=== PATIENT | male | born 1975 | race Caucasian/White ===

== ENCOUNTER 2021-03-21 21:36 | Emergency (ER) | payer OTHER ==
[~2021-03-21] VITALS: Ht 175.3 cm; Wt 86.2 kg
[2021-03-21] MEDS ORDERED: ASA81BEC PO (21:47)
[2021-03-21] MEDS ORDERED: CLARITIN10 M3 PO (21:47)
[2021-03-21 22:37] LABS: URINE BILIRUBIN NEGATIVE (Negative); URINE BLOOD TRACE (Negative); URINE CLARITY CLEAR; URINE COLOR YELLOW; URINE GLUCOSE-RANDOM NEGATIVE (Negative); URINE KETONES NEGATIVE (Negative); URINE LEUKOCYTES-REFLEX NEGATIVE (Negative); URINE NITRITE-REFLEX NEGATIVE (Negative); URINE PROTEIN NEGATIVE (Negative); URINE SPECIFIC GRAVITY 1.015 (1.005-1.030); URINE UROBILINOGEN 0.2 E.U./dl (0.2-1.0)
[2021-03-21 22:45] LABS: AMP/METHAMP Negative (Negative); BARBITURATES Negative (Negative); BENZODIAZEPINES Negative (Negative); COCAINE Negative (Negative); METHADONE Negative (Negative); OPIATES Negative (Negative); PCP Negative (Negative); THC Negative (Negative)
[2021-03-21 22:52] LABS: ABSOLUTE EOSINOPHILS 0.2 thou/uL (0.0-0.7); ABSOLUTE LYMPHOCYTES 1.5 thou/uL (0.8-5.3); ABSOLUTE MONOCYTES 0.8 thou/uL (0.0-1.2); BASOPHILS 0.4 %; EOSINOPHILS 2.4 %; HEMATOCRIT 41.6 % (42.0-52.0); HEMOGLOBIN 13.9 gm/dL (14.0-18.0); LYMPHOCYTES 20.5 %; MCHC 33.5 g/dL (28.0-37.0); MCV 86.5 fL (80.0-100.0); MONOCYTES 10.2 %; MPV 7.2 fl. (7.2-11.1); NUCLEATED RBCS 0 /100WBC; PLATELET COUNT* 277 thou/uL (150-400); POLYS 66.5 %; WBC 7.5 thou/uL (4.0-11.0)
[2021-03-21 23:07] LABS: CALCIUM 9.7 mg/dL (8.5-10.1); CREATININE 1.1 mg/dL (0.6-1.3); POTASSIUM 3.8 mmol/L (3.5-5.1)
[2021-03-22] MEDS ORDERED: FLEXERIL PO (00:36)
[2021-03-22] MEDS ORDERED: HYDROCODON-ACE1 EAC8 PO (00:36)
[2021-03-22 00:49] VITALS: BP 163/108
--- NOTE | 2021-03-23 12:06 | EKG ---
[place] [address] ELECTROCARDIOGRAM REPORT Name: DEXTERJOAQUIM Graham II Room: [facility]#: [id number] Admission: 03/21/21 Attend Phys: Discharge: 03/22/21 Date of : 79 Date of Service: 03/21/21 2304 Report #: [id number] THIS REPORT FOR: //name// [facility] ED Test Date: 2021-03-21 Test Time: 23:04:20 Pat Name: JOAQUIM RENTERIA Department: Room: Gender: [employer]over: [place] : 1975 Requested By: Johanny Toure Order Number: [id number] Janice MD: Mo Marin Measurements Intervals [place] Rate: 71 P: 23 RI: 135 QRS: -10 QRSD: 99 T: 22 QT: 385 QTc: 419 Interpretive Statements Sinus rhythm ST elev, probable normal early repol pattern No previous ECG available for comparison Electronically Signed On 03-23-2021 12:05:59 CDT by Mo Marin [email or web address] <ELECTRONICALLY SIGNED> By: Mo Marin MD, [facility] 03/23/21 1205 2304 03 Mo Marin MD, FACC /EPI
== END 2021-03-22 00:49 | disposition home or self-care (01) ==
LOC: M.ERS 21:36
PROVIDERS: Emergency Medicine
DX: M62.830 Muscle spasm of back (principal); M25.562 Pain in left knee; R10.13 Epigastric pain; M54.5 Low back pain; M25.512 Pain in left shoulder; M25.552 Pain in left hip; M54.2 Cervicalgia; V89.2XXA Person injured in unspecified motor-vehicle accident, traffic, initial encounter; Y93.89 Activity, other specified; Y92.89 Other specified places as the place of occurrence of the external cause; Y99.8 Other external cause status

== ENCOUNTER 2022-01-17 17:24 | Emergency (ER) | payer OTHER ==
[~2022-01-17] VITALS: Ht 175.3 cm; Wt 86.2 kg
[~2022-01-17 17:24] MED LIST: ASA81BEC PO; CLARITIN10 M3 PO; FLEXERIL PO; HYDROCODON-ACE1 EAC8 PO
[2022-01-17 17:53] LABS: URINE BILIRUBIN NEGATIVE (Negative); URINE BLOOD NEGATIVE (Negative); URINE CLARITY CLEAR; URINE COLOR YELLOW; URINE GLUCOSE-RANDOM NEGATIVE (Negative); URINE KETONES 1+ (Negative); URINE LEUKOCYTES-REFLEX NEGATIVE (Negative); URINE NITRITE-REFLEX NEGATIVE (Negative); URINE PROTEIN NEGATIVE (Negative); URINE SPECIFIC GRAVITY 1.015 (1.005-1.030); URINE UROBILINOGEN 0.2 E.U./dl (0.2-1.0)
[2022-01-17 18:24] LABS: ABSOLUTE EOSINOPHILS 0.1 thou/uL (0.0-0.7); ABSOLUTE LYMPHOCYTES 1.6 thou/uL (0.8-5.3); ABSOLUTE MONOCYTES 0.6 thou/uL (0.0-1.2); ABSOLUTE NEUTROPHILS 3.9 thou/uL (1.6-8.1); BASOPHILS 0.5 %; HEMATOCRIT 40.3 % (42.0-52.0); HEMOGLOBIN 13.6 gm/dL (14.0-18.0); LYMPHOCYTES 25.7 %; MCH 28.7 pg (26.0-34.0); MCHC 33.7 g/dL (28.0-37.0); MCV 85.1 fL (80.0-100.0); MONOCYTES 9.6 %; MPV 7.1 fl. (7.2-11.1); NUCLEATED RBCS 0 /100WBC; PLATELET COUNT* 286 thou/uL (150-400); POLYS 62.2 %; RBC 4.73 mil/uL (4.50-6.00); RDW-CV 13.6 % (10.5-14.5); WBC 6.3 thou/uL (4.0-11.0)
[2022-01-17 18:37] LABS: CALCIUM 8.4 mg/dL (8.5-10.1); CREATININE 0.9 mg/dL (0.6-1.3); POTASSIUM 3.8 mmol/L (3.5-5.1)
[2022-01-17 18:41] LABS: ALBUMIN 3.7 g/dL (3.4-5.0); TOTAL BILIRUBIN 0.3 mg/dL (<0.1-1.0); TOTAL PROTEIN 7.2 g/dL (6.4-8.2)
[2022-01-17] MEDS ORDERED: MECLIZINE HCL25 M1 PO (19:18)
[2022-01-17 19:53] VITALS: BP 140/99
--- NOTE | 2022-01-18 12:54 | EKG ---
[place] [address] ELECTROCARDIOGRAM REPORT Name: JOAQUIM RENTERIA II Room: [facility]#: [id number] Admission: 01/17/22 Attend Phys: Discharge: 01/17/22 Date of : 79 Date of Service: 01/17/22 1739 Report #: [id number] THIS REPORT FOR: //name// [facility] ED Test Date: 2022-01-17 Test Time: 17:39:21 Pat Name: JOAQUIM RENTERIA Department: Room: Gender: Farm Crew Member: CALI : 1975 Requested By: Amy Prescott Order Number: [id number] MD: Curt Davenport Measurements Intervals [place] Rate: 77 P: 33 KS: 144 QRS: -21 QRSD: 95 T: 18 QT: 369 QTc: 418 Interpretive Statements Sinus rhythm Borderline left axis deviation Abnormal R-wave progression, late transition ST elev, probable normal early repol pattern Compared to ECG 03/21/2021 23:04:20 No significant changes Electronically Signed On 01-18-2022 12:54:33 [employer] by Curt Davenport [email or web address] <ELECTRONICALLY SIGNED> By: Curt Davenport MD, [facility] 01/18/22 1254 1739 1739 Curt Davenport MD, [facility] /EPI
== END 2022-01-17 19:53 | disposition home or self-care (01) ==
LOC: M.ERS 17:24
PROVIDERS: Student in an Organized Health Care Education/Training Program
DX: R42 Dizziness and giddiness (principal); R03.0 Elevated blood-pressure reading, without diagnosis of hypertension; R11.2 Nausea with vomiting, unspecified; R51.9 Headache, unspecified; I25.2 Old myocardial infarction; Z95.5 Presence of coronary angioplasty implant and graft; Z79.82 Long term (current) use of aspirin